=== PATIENT | female | born 1970 | race Caucasian/White ===

== ENCOUNTER 2022-04-05 20:21 | Emergency (ER) | payer OTHER, SELFPAY ==
[2022-04-05] VITALS (7 sets, daily range): BP systolic 92–128; BP diastolic 59–83; PULSE 69–77; RESP 16; TEMP 36.4; O2SAT 94–98; BMI 21.7
--- NOTE | 2022-04-05 20:27 | ED.ALLEREA ---
HPI - Allergic Reaction General Chief complaint: Allergic Reaction Stated complaint: Stung by bee Time Seen by Provider: 04/05/22 20:25 History of Present Illness HPI narrative: 52F non-smoker without any significant chronic medical history presents by air medical transport for evaluation of allergic reaction in the aftermath of a bee sting. She has been stung before but never had such an impressive reaction. She was done underneath her left upper arm and soon thereafter developed a rapid progression of widespread hives that are most notable on chest back and upper extremities. They were profoundly itchy. She denies any face, tongue or lip swelling but does state that she feels like she may have a lump in her throat. She had taken Benadryl 50 mg by mouth as well as Pepcid 20 mg prior to being evaluated by EMS on [facility]. Upon their evaluation she was given an IV and Solu-Medrol 125 mg was administered. She is never had anaphylaxis before. She denies any trouble swallowing or breathing, she is had no GI symptoms such as nausea, vomiting or diarrhea. Related Data Previous Rx's Medication Instructions Recorded epinephrine 0.3 mg/0.3 mL 0.3 mg (0.3 mL) IM Q5-15M PRN 04/05/22 injection, auto-injector (EpiPen anaphylaxis #2 ea 2-Keyur) prednisone 20 mg tablet 20 mg PO DAILY #5 tabs 04/05/22 Review of Systems Review of Systems Narrative: GENERAL: Denies chills, fatigue, malaise, fever, sweats. HEENT: See HPI RESPIRATORY: Denies dyspnea, cough, wheezing, hemoptysis, sputum. CARDIOVASCULAR: Denies chest pain, palpitations, orthopnea, edema, GASTROINTESTINAL: Denies nausea, vomiting, abdominal pain, diarrhea, constipation, melena. : Denies dysuria, frequency, incontinence, hematuria, urinary retention. MUSCULOSKELETAL: denies weakness, joint pain, or bony pain SKIN: See HPI NEUROLOGIC: Denies weakness, headache, numbness, change in speech, confusion, seizures, incoordination. PSYCHIATRIC: No concerning psychosocial issues. 12 point review of systems is negative except for those stated above Exam Narrative Exam Narrative: GENERAL: [52] year old patient appears stated age. Well-developed patient, in mild distress. HEAD: Atraumatic. Normocephalic. EYES: Pupils equal round and reactive. Extraocular motions intact. No scleral icterus. No injection or drainage. ENT: Mild lower lip swelling, no tongue or pharyngeal edema, airway patent Nose without bleeding, purulent drainage. Throat without erythema, tonsillar hypertrophy or exudate. NECK: Trachea midline. Non tender CARDIOVASCULAR: Regular rate and rhythm without murmurs, gallops, or rubs. RESPIRATORY: Clear to auscultation. Breath sounds equal bilaterally. No wheezes, rales, or rhonchi. GASTROINTESTINAL: Abdomen soft, non-tender, nondistended. EXTREMITIES: No edema or joint tenderness. BACK: Nontender without deformity or crepitance. No flank tenderness. NEURO: AOx3. SKIN: Minimal upper extremity and chest urticaria, greatly improved per patient and EMS Initial Vital Signs Initial Vital Signs: Vital Signs Temperature 97.6 F 04/05/22 20:21 Pulse Rate 77 04/05/22 20:21 Respiratory Rate 16 04/05/22 20:21 Blood Pressure 128/83 04/05/22 20:21 Pulse Oximetry 97 04/05/22 20:21 Oxygen Delivery Method 04/05/22 20:21 Course Orders Ordered: Discontinued Medications Epinephrine HCl (Epinephrine 1 Mg/Ml) 0.5 mg IM NOW ONE Stop: 04/05/22 20:26 Last Admin: 04/05/22 20:29 Dose: 0.5 mg Documented By: YANCI Vital Signs Vital signs: Vital Signs - 8 hr 04/05/22 20:21 Temperature 97.6 F Pulse Rate 77 Respiratory Rate 16 Blood Pressure 128/83 Pulse Oximetry 97 Oxygen Delivery Method Room Air MDM - Allergic Reaction MDM Narrative Medical decision making narrative: Patient with significant if not complete resolution of symptoms with above-stated therapies. She is observed for multiple hours and has no recurrence of symptoms. She is given extensive return precautions, prescription sent to her pharmacy of choice and questions have been answered to her apparent satisfaction Discharge Plan Departure Patient Disposition: Home Clinical Impression: Allergic reaction, Urticaria Instructions: DI for Anaphylaxis Activity Restrictions/Additional Instructions: *You have been diagnosed with [allergic reaction] *What to do: *Please continue to take your regular medications as directed. [x ] New medication prescriptions sent to your pharmacy: [[facility] ] [ ] New medication written as a paper prescription [ ] No new medications given *Please consider the routine use of over the counter antihistamines over the next few days 1. H1 blockers: Benadryl (Diphenhydramine), Zyrtec (Cetirizine), Jeri (Fexofenadine) or Claritin (Loratadine) along with, 2. H2 blockers: Famotidine or Cimetidine *If you can please avoid what triggered your reaction today *Please follow up with your primary care provider in 2-3 days, call for an appointment. Let them know you were seen in the Emergency Department and that we ask that you be seen in follow up. We will electronically transmit a record of today's note if your PCP is in our system *If you do not have a primary care provider please contact the [facility] Resource line at [phone]. They will ask some questions about your medical history and help get you set up with a doctor in the community. *Return to Emergency Department if you should have any new, worsening or concerning symptoms, such as swelling of tongue, throat, trouble breathing, or other concerning symptoms Prescriptions: New prednisone 20 mg tablet 20 mg PO DAILY Qty: 5 0RF Rx Instructions: administer with food or milk epinephrine [EpiPen 2-Keyur] 0.3 mg/0.3 mL auto-injector 0.3 mg IM Q5-15M PRN (Reason: anaphylaxis) Qty: 2 0RF Rx Instructions: do not exceed 3 doses per episode Referrals: Ramandeep Shea MD [Primary Care Provider] - Visit Report Forms: Patient Portal/API
[2022-04-05] MEDS: EPINEPHrine 1 MG/ML 0.5 MG IM (20:29)
== END 2022-04-05 22:57 | disposition home or self-care (01) ==
PROVIDERS: Emergency Provider Emergency Medicine; PCP Internal Medicine
DX: T63.441A Toxic effect of venom of bees, accidental (unintentional), initial encounter (principal); L50.9 Urticaria, unspecified
CPT/HCPCS: 96372; 99283; J0171